=== PATIENT | male | born 1940 | race Caucasian/White ===

== ENCOUNTER 2023-06-13 12:38 | Emergency (ER) | payer SELFPAY ==
[~2023-06-13] VITALS: Ht 177.8 cm; Wt 90.7 kg
[2023-06-13 13:30] LABS: BASOPHILS % (AUTO) 0.8 % (0.0-2.0); EOSINOPHILS # (AUTO) 0.2 K/uL (0.0-0.7); EOSINOPHILS % (AUTO) 3.5 % (0.0-6.0); HEMATOCRIT 41 % (39-51); HEMOGLOBIN 13.9 g/dL (13.5-17.5); LYMPHOCYTES # (AUTO) 1.2 K/uL (0.8-4.8); LYMPHOCYTES % (AUTO) 18.8 % (20.0-44.0); MEAN CORPUSCULAR HEMOGLOBIN 31 PG (26.0-33.0); MEAN CORPUSCULAR HGB CONC 34 g/dl (31.0-36.0); MEAN CORPUSCULAR VOLUME 92 fL (80-96); MONOCYTES # (AUTO) 0.5 K/uL (0.1-1.30); NEUTROPHILS # (AUTO) 4.2 K/uL (1.8-8.9); NEUTROPHILS % (AUTO) 68.9 % (43.0-81.0); PLATELET COUNT (AUTO) 156 K/uL (150-450); RED CELL DISTRIBUTION WIDTH 13.6 % (11.5-15.0); WHITE BLOOD COUNT (AUTO) 6.2 K/uL (4.3-11.0)
[2023-06-13] MEDS ORDERED: LIDOCAINE 1%-EPI 1:100,000 20 ML VIAL ONE (13:51)
[2023-06-13 13:52] LABS: CALCIUM, SERUM 8.3 mg/dL (8.5-10.1); CARBON DIOXIDE 27 mmol/L (21-32); CHLORIDE 106 mmol/L (98-107); CREATININE 1.2 mg/dL (0.6-1.3); GLUCOSE 99 mg/dL (74-106); POTASSIUM 4.2 mmol/L (3.5-5.1); SODIUM SERUM 142 mmol/L (136-145); UREA NITROGEN, BLOOD 23 mg/dL (7-18)
[2023-06-13 13:58] LABS: INR 2.26 (0.91-1.10); PARTIAL THROMBOPLASTIN TIME 34.5 SEC (24.3-34.3); PROTHROMBIN TIME 22.7 SECS (9.2-11.1)
[2023-06-13 14:15] LABS: ALANINE AMINOTRANSFERASE 48 U/L (12-78); ALBUMIN 3.4 g/dL (3.4-5.0); ALKALINE PHOSPHATASE 84 U/L (46-116); ASPARTATE AMINOTRANSFERASE 29 U/L (15-37); BILIRUBIN,DIRECT 0.2 mg/dL (0.0-0.2); BILIRUBIN,TOTAL 0.7 mg/dL (0.2-1.0); TOTAL PROTEIN, SERUM 6.5 g/dL (6.4-8.2)
[2023-06-13] MEDS ORDERED: WARF-58 PO (14:31)
[2023-06-13] MEDS ORDERED: AMLO-212 PO (14:31)
[2023-06-13] MEDS ORDERED: CYCL5TAB PO (14:31)
[2023-06-13] MEDS ORDERED: WARF2.5T85 PO (14:31)
[2023-06-13] MEDS ORDERED: ATOR40TA PO (14:31)
[2023-06-13] MEDS ORDERED: CEFAZOLIN 1 GM in IV D5W 50 ML IV ONE (15:00)
[2023-06-13] MEDS ORDERED: TYL2T PO (15:40)
[2023-06-13] MEDS ORDERED: AMOX-430 PO (15:40)
[2023-06-13 17:55] VITALS: BP 126/74; TEMP 97.9; O2SAT 96
== END 2023-06-13 17:55 | disposition home or self-care (01) ==
LOC: ER 13:14
DX: S02.2XXA Fracture of nasal bones, initial encounter for closed fracture (principal); S01.81XA Laceration without foreign body of other part of head, initial encounter; I10 Essential (primary) hypertension; I48.91 Unspecified atrial fibrillation; Z79.899 Other long term (current) drug therapy; W18.39XA Other fall on same level, initial encounter; Y93.01 Activity, walking, marching and hiking; Y92.89 Other specified places as the place of occurrence of the external cause; Y99.8 Other external cause status
CPT/HCPCS: 12014; 36415; 70450; 70486; 80048; 80076; 84484; 85025; 85730; 86850; 93005; 96365; 99285; A4223; J0690; J3490; J7060

== ENCOUNTER 2023-06-19 08:58 | Emergency (ER) | payer BC, MEDICARE ==
[~2023-06-19] VITALS: Ht 177.8 cm; Wt 90.7 kg
[~2023-06-19 08:58] MED LIST: AMLO-212 PO; AMOX-430 PO; ATOR40TA PO; CYCL5TAB PO; TYL2T PO; WARF-58 PO; WARF2.5T85 PO
[2023-06-19 09:05] VITALS: BP 137/72; TEMP 98.2; O2SAT 96
== END 2023-06-19 09:56 | disposition home or self-care (01) ==
LOC: ER 08:58
DX: S01.81XD Laceration without foreign body of other part of head, subsequent encounter (principal); I10 Essential (primary) hypertension; I48.91 Unspecified atrial fibrillation; W01.0XXD Fall on same level from slipping, tripping and stumbling without subsequent striking against object, subsequent encounter